=== PATIENT | male | born 2000 | race Caucasian/White ===

== ENCOUNTER 2024-05-19 16:27 | Emergency (ER) | payer OTHER ==
[~2024-05-19] VITALS: Ht 190.5 cm; Wt 109.3 kg
[2024-05-19 16:35] VITALS: TEMP 98.9
[2024-05-19 16:57] LABS: BASOPHILS % (AUTO) 0.3 % (0-1); EOSINOPHILS % (AUTO) 0.2 % (0-6); HEMATOCRIT 46.7 % (42.0-52.0); HEMOGLOBIN 15.7 g/dl (14.0-17.9); LYMPHOCYTES # (AUTO) 1.4 X10'3 (1.1-4.8); LYMPHOCYTES % (AUTO) 13.6 % (21-51); MEAN CORPUSCULAR HEMOGLOBIN 28.6 PG (27.0-31.0); MEAN CORPUSCULAR HGB CONC 33.5 g/dL (33.0-36.5); MEAN CORPUSCULAR VOLUME 85.4 FL (78-98); MEAN PLATELET VOLUME 6.5 FL (7.4-10.4); MONOCYTES # (AUTO) 1.3 X10'3 (0-0.9); MONOCYTES % (AUTO) 12.2 % (2-12); NEUTROPHILS # (AUTO) 7.8 X10'3 (1.8-7.7); NEUTROPHILS % (AUTO) 73.7 % (42-75); PLATELET COUNT 370 X10'3 (140-440); RED BLOOD COUNT 5.48 X10'6 (4.70-6.10); RED CELL DISTRIBUTION WIDTH 13.4 % (11.5-14.5); WHITE BLOOD COUNT 10.6 X10'3 (4.5-11.0)
[2024-05-19 17:34] LABS: ALANINE AMINOTRANSFERASE 50 U/L (12-78); ALBUMIN 5.3 G/DL (3.4-5.0); ALBUMIN/GLOBULIN RATIO 1.2 (1.1-1.5); ALKALINE PHOSPHATASE 96 IU/L (46-116); ANION GAP 12 (8-16); ASPARTATE AMINO TRANSFERASE 72 U/L (10-37); BILIRUBIN,TOTAL 1.3 MG/DL (0.1-1.0); BLOOD UREA NITROGEN 17 MG/DL (7-18); BUN/CREATININE RATIO 10.5 (10.0-20.0); CALCIUM 10.4 MG/DL (8.5-10.1); CHLORIDE 93 MMOL/L (99-107); CREATININE 1.62 MG/DL (0.60-1.10); GLUCOSE 92 MG/DL (70-104); LIPASE 19 U/L (16-77); POTASSIUM 3.8 MMOL/L (3.5-5.1); SODIUM 131 MMOL/L (135-145); TOTAL CARBON DIOXIDE 25.8 MMOL/L (24-32); TOTAL PROTEIN 9.8 G/DL (6.4-8.2); eCRCL 85 ML/MIN; eGFR 54 ML/MIN
[2024-05-19 18:17] VITALS: BP 161/104; PULSE 103; RESP 16; O2SAT 97
[2024-05-19] MEDS ORDERED: OMEP40CA21 PO (18:29)
[2024-05-19] MEDS ORDERED: LISI10TA27 PO (18:29)
== END 2024-05-19 18:51 | disposition home or self-care (01) ==
LOC: ER 16:29
DX: G89.29 Other chronic pain (principal); R10.32 Left lower quadrant pain; N17.9 Acute kidney failure, unspecified; M54.14 Radiculopathy, thoracic region; R19.7 Diarrhea, unspecified
CPT/HCPCS: 36415; 74176; 80053; 83690; 85025; 99284